=== PATIENT | female | born 1950 | race Caucasian/White ===

== ENCOUNTER 2020-06-23 07:36 | Day surgery (SDC) | payer OTHER ==
[~2020-06-23] VITALS: Ht 167.6 cm; Wt 87.8 kg
[~2020-06-23 07:36] MED LIST: ALBU90I INH; ALBU90OI6 INH; AMIT25 PO; CLON1 PO; CLOP75 PO; FAMO20 PO; FAMO40 PO; FLUT.05NI; FLUT44OIA; LISHYD1012 PO; LISI20 PO; MELO7.5 PO; MONT10T PO; OLOP.1OPSO; PARO10 PO; POTCHL20ER PO; PRAV20 PO; Simvastatin20 MG PO
== END 2020-06-23 10:05 | disposition home or self-care (01) ==
LOC: ORSCSDS 07:36
PROVIDERS: Internal Medicine Gastroenterology
PROC: 0DBM8ZX Excision of Descending Colon, Via Natural or Artificial Opening Endoscopic, Diagnostic (ICD-10-PCS; principal; 2020-06-23 09:00)
DX: Z12.11 Encounter for screening for malignant neoplasm of colon (principal); Z86.010 Personal history of colon polyps; D12.4 Benign neoplasm of descending colon; K21.9 Gastro-esophageal reflux disease without esophagitis; E78.5 Hyperlipidemia, unspecified; J45.909 Unspecified asthma, uncomplicated; F41.9 Anxiety disorder, unspecified; K57.30 Diverticulosis of large intestine without perforation or abscess without bleeding; I10 Essential (primary) hypertension; Z80.0 Family history of malignant neoplasm of digestive organs; Z79.01 Long term (current) use of anticoagulants; Z79.899 Other long term (current) drug therapy
CPT/HCPCS: 88305; J0330; J0461; J2405; J2704; J7120